=== PATIENT | female | born 1970 | race Hispanic/Latino ===

== ENCOUNTER 2020-01-02 10:31 | Emergency (ER) | payer SELFPAY ==
--- NOTE | 2020-01-02 11:57 | RAD REPORT ---
EXAM DESCRIPTION: RAD - Foot Right 3 View - 01/02/2020 11:14 am CLINICAL HISTORY: PAIN COMPARISON: No comparisons FINDINGS: No fracture, dislocation or periosteal reaction. No acute or destructive bone process. Soft tissue swelling is present over the dorsum of the foot. No air or foreign body present. IMPRESSION: Negative right foot examination for acute bone or joint finding. Soft tissue swelling of the dorsum of the foot.
--- NOTE | 2020-01-02 12:35 | ER ---
Nurse's Notes [facility] Name: Ora Scanlon Age: 49 yrs Sex: Female : 1970 Arrival Date: 01/02/2020 Time: 10:34 Bed 24 Private MD: Diagnosis: Contusion of right foot Presentation: 01/01 10:44 Chief complaint: Patient states: 3 days ago pt accidently kicked something and has dm5 bruising and swelling to right foot. pt has tried elevating foot and applying ice but there is still swelling. Coronavirus screen: The patient has NOT traveled to a country currently being monitored by the [facility] within the last 14 days. Proceed with normal triage procedures. The patient has NOT had contact with any known and/or suspected case of coronavirus. Proceed with normal triage procedures. Ebola Screen: Patient negative for fever greater than or equal to 101.5 degrees Fahrenheit, and additional compatible Ebola Virus Disease symptoms Patient denies exposure to infectious person. Patient denies travel to an Ebola-affected area in the 21 days before illness onset. No symptoms or risks identified at this time. Initial Sepsis Screen: Does the patient meet any 2 criteria? No. Patient's initial sepsis screen is negative. Does the patient have a suspected source of infection? No. Patient's initial sepsis screen is negative. Risk Assessment: Do you want to hurt yourself or someone else? Patient reports no desire to harm self or others. 10:44 Method Of Arrival: Ambulatory dm5 10:44 Acuity: JAMIE 4 dm5 - Immunization history:: Adult Immunizations up to date. - Social history:: Smoking status: Patient denies any tobacco usage or history of. Screenin:00 Abuse screen: Denies threats or abuse. Denies injuries from another. Nutritional ss screening: No deficits noted. Tuberculosis screening: Never had TB. Fall Risk None identified. Assessment: 12:00 General: Appears in no apparent distress. comfortable, Behavior is calm, cooperative. ss Pain: Complains of pain in top of R foot Pain currently is 5 out of 10 on a pain scale. Quality of pain is described as tender. Neuro: Level of Consciousness is awake, alert, obeys commands, Financial Systems Analyst are. Cardiovascular: Capillary refill < 3 seconds is brisk in bilateral fingers. Respiratory: Airway is patent Respiratory effort is even, unlabored, Respiratory pattern is regular, symmetrical. GI: Patient currently denies diarrhea, nausea, vomiting. : No signs and/or symptoms were reported regarding the genitourinary system. EENT: Oral mucosa is moist. Throat is clear. Derm: Skin is intact, is healthy with good turgor, Skin is dry, Skin is pink, warm \T\ dry. normal. Musculoskeletal: Circulation, motion, and sensation intact. Range of motion: intact in all extremities, Swelling present in right foot. Vital Signs: 10:44 BP 143 / 78; Pulse 78; Resp 18; Temp 98.5; Pulse Ox 96% on R/A; Weight 75.75 kg (R); dm5 Height 5 ft. 0 in. (152.40 cm); Pain 5/10; 10:44 Body Mass Index 32.61 (75.75 kg, 152.40 cm) 5 ED Course: 10:34 Patient arrived in ED. mr 10:46 Triage completed. 5 11:14 XRAY Foot RIGHT 3 View In Process Unspecified. EDMS 11:41 Ted Cat PA is PHCP. [facility] 11:41 Durga Cleveland MD is Attending Physician. [facility] 12:00 Patient has correct armband on for positive identification. Bed in low position. Call ss light in reach. 12:12 Arcelia Marsh, ROBERT is Primary Nurse. ss 12:35 Anil Newman DPM is Referral Physician. [facility] 13:27 No provider procedures requiring assistance completed. Patient did not have IV access ss during this emergency room visit. Crutch training done. Ortho shoe applied to right foot. Administered Medications: No medications were administered Outcome: 12:35 Discharge ordered by . [facility] 13:27 Discharged to home with crutches, with family. ss 13:27 Condition: good 13:27 Discharge instructions given to patient, Instructed on discharge instructions, follow up and referral plans. medication usage, Demonstrated understanding of instructions, follow-up care, medications. 13:28 Patient left the ED. ss Signatures: Dispatcher [employer] EDMS May Melgar, RN RN dm5 Ted Cat PA PA [facility] Juan Arminda mr Arcelia Marsh, ROBERT JONES ss
--- NOTE | 2020-01-02 12:36 | EDPHYS ---
Physician Documentation [facility] Name: Ora Scanlon Age: 49 yrs Sex: Female : 1970 Arrival Date: 01/02/2020 Time: 10:34 Bed 24 Private MD: ED Physician Durga Cleveland HPI: 01/01 12:29 This 49 yrs old Female presents to ER via Ambulatory with complaints of Foot jmm Injury. 12:29 The patient presents with an injury, pain, that is acute. Onset: The symptoms/episode jmm began/occurred acutely, just prior to arrival. Modifying factors: The symptoms are alleviated by elevating leg, the symptoms are aggravated by weight bearing. Associated signs and symptoms: Pertinent positives: swelling. This is a 49 year old female that presents to the ED with complaints of right foot swelling. Patient states this occurred after kicking a hard object 2 days ago. . - Immunization history:: Adult Immunizations up to date. - Social history:: Smoking status: Patient denies any tobacco usage or history of. ROS: 12:29 Constitutional: Negative for fever, chills, and weight loss, Cardiovascular: Negative jmm for chest pain, palpitations, and edema, Respiratory: Negative for shortness of breath, cough, wheezing, and pleuritic chest pain. 12:29 MS/extremity: Positive for injury or acute deformity. 12:29 All other systems are negative. Exam: 12:29 Constitutional: This is a well developed, well nourished patient who is awake, alert, jmm and in no acute distress. Head/Face: atraumatic. Eyes: EOMI, no conjunctival erythema appreciated ENT: Moist Mucus Membranes Neck: Trachea midline, Supple Chest/axilla: Normal chest wall appearance and motion. Cardiovascular: Regular rate and rhythm. No edema appreciated Respiratory: Normal respirations, no respiratory distress appreciated Abdomen/GI: Non distended, soft Back: Normal ROM 12:29 Musculoskeletal/extremity: swelling noted to the right foot, full dorsalis pulse, compartments are soft, NVI. 12:29 Skin: ecchymosis noted to the dorsum of the right foot. 12:29 Neuro: Orientation: is normal, Mentation: is normal, Memory: is normal. 12:29 Psych: Behavior/mood is pleasant, cooperative. Vital Signs: 10:44 BP 143 / 78; Pulse 78; Resp 18; Temp 98.5; Pulse Ox 96% on R/A; Weight 75.75 kg (R); dm5 Height 5 ft. 0 in. (152.40 cm); Pain 5/10; 10:44 Body Mass Index 32.61 (75.75 kg, 152.40 cm) dm5 MDM: 11:42 Patient medically screened. [facility] 12:29 Data reviewed: vital signs, nurses notes. Counseling: I had a detailed discussion with jason the patient and/or guardian regarding: the historical points, exam findings, and any diagnostic results supporting the discharge/admit diagnosis, radiology results, the need for outpatient follow up, to return to the emergency department if symptoms worsen or persist or if there are any questions or concerns that arise at home. ED course: Imaging studies negative. Patient advised to follow up with podiatry. . 01/01 10:46 Order name: XRAY Foot RIGHT 3 View; Complete Time: 12:04 [facility] 01/01 12:09 Order name: Orthopedic shoe; Complete Time: 13:14 [facility] 01/01 12:09 Order name: Crutches; Complete Time: 13:14 [facility] Administered Medications: No medications were administered Disposition: 01/02/20 12:35 Discharged to Home. Impression: Contusion of right foot. - Condition is Stable. - Discharge Instructions: Foot Pain. - Medication Reconciliation Form, Thank You Letter, Antibiotic Education, Prescription Opioid Use form. - Follow up: Anil Newman DPM; When: 2 - 3 days; Reason: Recheck today's complaints, Continuance of care, Re-evaluation by your physician. Addendum: 01/04/2020 09:05 Co-signature as Attending Physician, Durga Cleveland MD I agree with the assessment and c cowan plan of care. Signatures: Dispatcher [employer] EDMS Durga Cleveland MD MD cha Mickail, Joel, PA PA Arcelia Hernandez RN RN ss Corrections: (The following items were deleted from the chart) 01/01 13:28 12:35 01/02/2020 12:35 Discharged to Home. Impression: Contusion of right foot. ss Condition is Stable. Forms are Medication Reconciliation Form, Thank You Letter, Antibiotic Education, Prescription Opioid Use. Follow up: Anil Newman; When: 2 - 3 days; Reason: Recheck today's complaints, Continuance of care, Re-evaluation by your physician. jason
== END 2020-01-02 13:28 | disposition home or self-care (01) ==
LOC: ER 10:31
DX: S90.31XA Contusion of right foot, initial encounter (principal); W22.8XXA Striking against or struck by other objects, initial encounter; Y93.9 Activity, unspecified; Y92.9 Unspecified place or not applicable
CPT/HCPCS: 99283

== ENCOUNTER 2020-11-22 05:01 | Inpatient (IN) | payer SELFPAY ==
[2020-11-22] MEDS ORDERED: ACETAMINOPHEN 500 MG TAB ONE (05:37)
[2020-11-22] MEDS ORDERED: METHYLPREDNISOLONE 125 MG INJ ONE (05:37)
[2020-11-22] MEDS ORDERED: NA CHLORIDE 0.9% 500 ML ONE (05:37)
[2020-11-22 05:52] LABS: Absolute Lymphocytes (CBC) 1.3 K/uL (0.7-4.9); Basophils % 0.3 % (0-1.3); Hematocrit 39.9 % (36.0-45.0); Lymphocytes % 24.3 % (15.3-44.8); RBC Red Blood Cell Count 4.98 M/uL (3.86-4.86)
[2020-11-22] MEDS ORDERED: ONDANSETRON 4 MG/2 ML VIAL ONE (05:54)
[2020-11-22 06:08] LABS: ALT/SGPT 71 U/L (12-78); AST/SGOT 48 U/L (15-37); Albumin 3.3 g/dL (3.4-5.0); Alkaline Phosphatase 89 U/L (45-117); BUN Blood Urea Nitrogen 7 mg/dL (7-18); Bicarbonate 26 mmol/L (21-32); Bilirubin Direct < 0.1 mg/dL (0-0.2); Bilirubin Total 0.2 mg/dL (0.2-1.0); Ferritin 552.8 ng/mL (8-388); Glucose Level 199 mg/dL (74-106); Potassium 3.8 mmol/L (3.5-5.1); Sodium Level 135 mmol/L (136-145)
--- NOTE | 2020-11-22 06:28 | ER ---
Nurse's Notes [facility] Name: Ora Scanlon Age: 50 yrs Sex: Female : 1970 Arrival Date: 11/22/2020 Time: 05:02 Bed 14 Private MD: Diagnosis: Coronavirus infection, unspecified;Pneumonia, unspecified organism;Hypoxemia Presentation: 11/22 05:16 Chief complaint: Patient states: reports testing pos. for covid last Saturday, reports em no appetite, shortness of breath, fever and nausea, felt more generalized weakness today. Coronavirus screen: Client denies travel out of the [place] in the last 14 days. cough unrelated to allergies, fatigue, fever, shortness of breath, Client reports previous positive COVID test result. Date of collection: November 16, 2020. Ebola Screen: Patient negative for fever greater than or equal to 101.5 degrees Fahrenheit, and additional compatible Ebola Virus Disease symptoms Patient denies exposure to infectious person. Patient denies travel to an Ebola-affected area in the 21 days before illness onset. No symptoms or risks identified at this time. Initial Sepsis Screen: Does the patient meet any 2 criteria? Temp <36.0*C (96.8*F)) or > 38.3*C (100.9*F). HR > 90 bpm. Yes Does the patient have a suspected source of infection? Yes: Productive cough/pneumonia If YES to both, name of provider notified: Calos Gramajo MD. Risk Assessment: Do you want to hurt yourself or someone else? Patient reports no desire to harm self or others. Onset of symptoms was November 16, 2020. 05:16 Method Of Arrival: Wheelchair em 05:16 Acuity: JAMIE 2 em Triage Assessment: 05:15 General: Appears uncomfortable. Respiratory: Reports shortness of breath at rest Onset: ea The symptoms/episode began/occurred today, the patient has moderate shortness of breath. 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 - Social history:: Smoking status: Patient denies any tobacco usage or history of. - Family history:: not pertinent. - Hospitalizations: : No recent hospitalization is reported. Screenin:20 Abuse screen: Denies threats or abuse. Denies injuries from another. Nutritional rr5 screening: No deficits noted. Tuberculosis screening: No symptoms or risk factors identified. Fall Risk IV access (20 points). Total Brunner Fall Scale indicates No Risk (0-24 pts). Assessment: 05:15 General: Appears uncomfortable, Behavior is appropriate for age. Pain: Denies pain. ea Neuro: Level of Consciousness is awake, alert, obeys commands, Oriented to person, place, time. Cardiovascular: Patient's skin is warm and dry. Respiratory: Airway is patent Respiratory effort is labored, Respiratory pattern is tachypnea. 05:15 Cardiovascular: Rhythm is sinus tachycardia. Derm: Skin is dry, Skin is pale, Skin ea temperature is hot. 06:07 Reassessment: Patient and/or family updated on plan of care and expected duration. Pain ea level reassessed. Alert and oriented x 3. Pt remains on 4 L per nasal cannula, tolerating well. Pt remains tachypneic but respiration rate has improved after O2. 07:00 Reassessment: RECD REPORT FROM ADAM JONES. 50YO HF P/W SOB, COUGH AND FEVER, +COVID. bp ADMIT INITIATED. Respiratory: Breath sounds are coarse bilaterally. 09:00 Reassessment: No changes from previously documented assessment. Patient and/or family bp updated on plan of care and expected duration. Pain level reassessed. ADMIT IN PROCESS. 11:00 Reassessment: NO BED AVAILABLE. PT NOW ER HOLD, SEE [facility]. bp Vital Signs: 05:16 Pulse 107; Resp 26; Temp 101.2(O); Pulse Ox 92% on R/A; Height 4 ft. 11 in. (149.86 em cm); Pain 0/10; 05:20 BP 139 / 78; em 05:20 Pulse 118; Resp 32; Pulse Ox 88% on R/A; ea 05:30 Pulse Ox 90% on 4 lpm NC; rr5 05:34 Pulse Ox 98% on 4 lpm NC; rr5 05:43 BP 121 / 78; Pulse 102; Resp 30; Pulse Ox 99% ; Weight 79.38 kg; Height 4 ft. 11 in. rr5 (149.86 cm); 06:01 Pulse 91; Resp 27; Pulse Ox 99% ; ea 06:06 BP 117 / 63; Pulse 90; Resp 24; Pulse Ox 98% ; ea 07:00 Temp 100.7; rr5 07:00 BP 107 / 63; Pulse 84; Resp 29; Pulse Ox 96% ; bp 09:00 BP 117 / 71; Pulse 78; Resp 27; Pulse Ox 97% ; bp 11:00 BP 112 / 72; Pulse 76; Resp 21; Pulse Ox 97% ; bp 05:43 Body Mass Index 35.35 (79.38 kg, 149.86 cm) rr5 05:20 pt placed on 3 L per nasal cannula ea 05:30 started rr5 ED Course: 05:02 Patient arrived in ED. am2 05:11 Calos Gramajo MD is Attending Physician. rn 05:13 EKG done, by ED staff, reviewed by Calos Gramajo MD. rr5 05:15 Inserted saline lock: 20 gauge in left antecubital area, using aseptic technique. rr5 ,using aseptic technique. inserted by ganesh JONES Blood collected. 05:15 First set of blood cultures drawn by ED staff. rr5 05:19 Triage completed. em 05:19 Arm band placed on. em 05:30 Patient has correct armband on for positive identification. Placed in gown. Bed in low rr5 position. Call light in reach. Side rails up X2. cardiac monitor on. Pulse ox on. NIBP on. 05:33 Adam Amezquita RN is Primary Nurse. rr5 05:42 CXR XRAY In Process Unspecified. EDMS 06:28 Vincent Hyde DO is Hospitalizing Provider. rn 07:13 Primary Nurse role handed off by Adam Amezquita, ROBERT rr5 07:23 Beto Khoury, RN is Primary Nurse. bp 11:09 No provider procedures requiring assistance completed. Patient admitted, IV remains in bp place. 02 07:20 Primary Nurse role handed off by Beto Khoury, RN bd Administered Medications: 11/22 05:30 Drug: Tylenol 1000 mg Route: PO; rr5 07:00 Follow up: Response: No adverse reaction; Temperature is decreased rr5 05:31 Drug: SOLU-Medrol 125 mg Route: IVP; Site: left antecubital; rr5 06:30 Follow up: Response: No adverse reaction rr5 05:32 Drug: NS 0.9% 500 ml Route: IV; Rate: bolus; Site: left antecubital; rr5 06:36 Follow up: Response: No adverse reaction; IV Status: Completed infusion; IV Intake: rr5 500ml 05:42 Drug: Zofran (Ondansetron) 4 mg Route: IVP; Site: left antecubital; rr5 07:10 Follow up: Response: No adverse reaction rr5 Intake: 06:36 IV: 500ml; Total: 500ml. rr5 Outcome: 06:28 Decision to Hospitalize by Provider. rn 11:09 Admitted to ER Hold. Please see [facility] for further documentation. bp 11:09 Condition: stable 11:09 Instructed on the need for admit. 02 15:53 Patient left the ED. sv Signatures: Dispatcher [employer] EDMS Magda Abebe Stephanie RN RN Bill Cooney, RN RN Calos Mckeon MD MD rn Moreno, Amanda am2 Antunez, Elena, RN RN ea Peltier, Brian, RN RN Adam Batista, RN RN rr5 Corrections: (The following items were deleted from the chart) 11/22 08:15 07:00 Pulse 84bpm; Resp 29bpm; Pulse Ox 96%; bp bp
--- NOTE | 2020-11-22 06:29 | EDPHYS ---
Physician Documentation [facility] Name: Ora Scanlon Age: 50 yrs Sex: Female : 1970 Arrival Date: 11/22/2020 Time: 05:02 Bed 14 Private MD: ED Physician Calos Gramajo HPI: 11/22 05:17 This 50 yrs old Female presents to ER via Unassigned with complaints of rn Shortness Of Breath, Breathing Difficulty, Cough, Decreased Appetite, covid+. 05:17 The patient has shortness of breath with light activity. Onset: The symptoms/episode rn began/occurred 6 day(s) ago. Duration: The symptoms are continuous. The patient's shortness of breath is aggravated by exertion, light activity, walking. Severity of symptoms: At their worst the symptoms were moderate in the emergency department the symptoms are unchanged. The patient has not experienced similar symptoms in the past. The patient has not recently seen a physician. No chest pain, no hemoptysis. Reports came in for increased sob and generalized weakness. . 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 - Social history:: Smoking status: Patient denies any tobacco usage or history of. - Family history:: not pertinent. - Hospitalizations: : No recent hospitalization is reported. ROS: 05:19 Constitutional: + fever and chills Eyes: Negative for injury, pain, redness, and recovery rn, ENT: Negative for injury, pain, and discharge, Cardiovascular: Negative for chest pain, and edema Respiratory: + sob and cough Abdomen/GI: Negative for abdominal pain, nausea, vomiting, diarrhea, and constipation, Back: Negative for injury and pain, : Negative for injury, bleeding, discharge, and swelling, MS/Extremity: Negative for injury and deformity, Skin: Negative for injury, rash, and discoloration, Neuro: Negative for headache, numbness, tingling, and seizure. Exam: 05:19 Constitutional: Overweight patient, mild to moderate tachypnea Head/Face: rn Normocephalic, atraumatic. ENT: no stridor Cardiovascular: Tachycardic, regular Respiratory: + moderat tachypnea, no retractions Abdomen/GI: soft, non-tender Skin: Warm, dry MS/ Extremity: Pulses equal, no cyanosis. Neuro: Awake and alert, GCS 15 05:48 ECG was reviewed by the Attending Physician. rn Vital Signs: 05:16 Pulse 107; Resp 26; Temp 101.2(O); Pulse Ox 92% on R/A; Height 4 ft. 11 in. (149.86 em cm); Pain 0/10; 05:20 BP 139 / 78; em 05:20 Pulse 118; Resp 32; Pulse Ox 88% on R/A; ea 05:30 Pulse Ox 90% on 4 lpm NC; rr5 05:34 Pulse Ox 98% on 4 lpm NC; rr5 05:43 BP 121 / 78; Pulse 102; Resp 30; Pulse Ox 99% ; Weight 79.38 kg; Height 4 ft. 11 in. rr5 (149.86 cm); 06:01 Pulse 91; Resp 27; Pulse Ox 99% ; ea 06:06 BP 117 / 63; Pulse 90; Resp 24; Pulse Ox 98% ; ea 07:00 Temp 100.7; rr5 07:00 BP 107 / 63; Pulse 84; Resp 29; Pulse Ox 96% ; bp 09:00 BP 117 / 71; Pulse 78; Resp 27; Pulse Ox 97% ; bp 11:00 BP 112 / 72; Pulse 76; Resp 21; Pulse Ox 97% ; bp 05:43 Body Mass Index 35.35 (79.38 kg, 149.86 cm) rr5 05:20 pt placed on 3 L per nasal cannula ea 05:30 started rr5 MDM: 05:11 Patient medically screened. rn 06:27 Differential diagnosis: pneumonia, Pneumothorax pulmonary edema. Data reviewed: vital rn signs, nurses notes, lab test result(s), EKG, radiologic studies, plain films, and as a result, I will admit patient. Counseling: I had a detailed discussion with the patient and/or guardian regarding: the historical points, exam findings, and any diagnostic results supporting the discharge/admit diagnosis, lab results, radiology results, the need for further work-up and treatment in the hospital. Response to treatment: the patient's symptoms have mildly improved after treatment, and as a result, I will admit patient. Admission orders: after a detailed discussion of the patient's condition and case, the admit orders are written by me. ED course: Will admit to [facility] fro COVID pneumonia and oxygen 88% with increased work of breathing. . 11/22 05:17 Order name: Blood Culture Adult (2) rn 11/22 05:17 Order name: BMP rn 11/22 05:17 Order name: C-Reactive Protein rn 11/22 05:17 Order name: CBC with Diff rn 11/22 05:17 Order name: D-Dimer rn 11/22 05:17 Order name: Ferritin rn 11/22 05:17 Order name: Lactate rn 11/22 05:17 Order name: LFT's rn 11/22 05:17 Order name: Procalcitonin rn 11/22 05:18 Order name: Blood Culture EDMS 11/22 05:18 Order name: Basic Metabolic Panel; Complete Time: 06:28 EDMS 11/22 05:18 Order name: C-Reactive Protein; Complete Time: 06:28 EDMS 11/22 05:18 Order name: CBC with Automated Diff; Complete Time: 06:28 EDMS 11/22 05:18 Order name: D-Dimer; Complete Time: 06:28 EDMS 11/22 05:17 Order name: CXR XRAY rn 11/22 05:18 Order name: Ferritin; Complete Time: 06:28 EDMS 11/22 05:18 Order name: Lactate; Complete Time: 06:28 EDMS 11/22 05:18 Order name: Liver (Hepatic) Function; Complete Time: 06:28 EDMS 11/22 12:44 Order name: Glucose, Ancillary Testing EDMS 11/22 16:48 Order name: Glucose, Ancillary Testing EDMS 11/22 21:46 Order name: Urine Dipstick--Ancillary (enter results) ds4 11/22 21:53 Order name: Glucose, Ancillary Testing EDMS 11/22 22:03 Order name: Urine Dipstick-Ancillary EDMS 11/23 05:33 Order name: C-Reactive Protein EDMS 11/23 05:33 Order name: Ferritin EDMS 11/23 06:14 Order name: Hemoglobin A1c EDMS 11/23 08:22 Order name: Glucose, Ancillary Testing EDMS 11/23 11:49 Order name: Glucose, Ancillary Testing [facility] 11/22 05:17 Order name: EKG; Complete Time: 05:19 rn 11/22 05:17 Order name: Cardiac monitoring; Complete Time: 05:56 rn 11/22 05:17 Order name: Droplet/Contact Precautions; Complete Time: 05:56 rn 11/22 05:17 Order name: EKG - Nurse/Tech; Complete Time: 05:56 rn 11/22 05:17 Order name: IV Start; Complete Time: 05:56 rn 11/22 05:17 Order name: Labs collected and sent; Complete Time: 05:56 rn 11/22 05:17 Order name: O2 Per Protocol; Complete Time: :56 rn 11/22 05:17 Order name: O2 Sat Monitoring; Complete Time: :56 rn EC:48 Rate is 103 beats/min. Rhythm is regular. QRS Cadwell is Normal. DC interval is normal. rn QRS interval is normal. QT interval is normal. No Q waves. T waves are Normal. No ST changes noted. Clinical impression: Sinus tachycardia. Interpreted by me. Reviewed by me. Administered Medications: 05:30 Drug: Tylenol 1000 mg Route: PO; rr5 07:00 Follow up: Response: No adverse reaction; Temperature is decreased rr5 05:31 Drug: SOLU-Medrol 125 mg Route: IVP; Site: left antecubital; rr5 06:30 Follow up: Response: No adverse reaction rr5 05:32 Drug: NS 0.9% 500 ml Route: IV; Rate: bolus; Site: left antecubital; rr5 06:36 Follow up: Response: No adverse reaction; IV Status: Completed infusion; IV Intake: rr5 500ml 05:42 Drug: Zofran (Ondansetron) 4 mg Route: IVP; Site: left antecubital; rr5 07:10 Follow up: Response: No adverse reaction rr5 Disposition: 11/22/20 06:28 Hospitalization ordered by [facility] for Observation. Preliminary diagnosis are Coronavirus infection, unspecified, Pneumonia, unspecified organism, Hypoxemia. - Bed requested for [facility] ER HOLD. - Status is Observation. sv - Condition is Stable. - Problem is new. - Symptoms have improved. Signatures: Dispatcher [employer] Melisa Orozco RN Bill Burton, RN RN Calos Mckeon MD MD rn Peltier, Brian, RN RN Girish Batista, RN RN rr5 Lulu West, RN RN ll2 Corrections: (The following items were deleted from the chart) 06:50 06:28 Hospitalization Ordered by Vincent Hyde DO for Inpatient Admission. Preliminary rn diagnosis is Coronavirus infection, unspecified; Pneumonia, unspecified organism; Hypoxemia. Bed requested for Telemetry/MedSurg (Inpatient). Status is Inpatient Admission. Condition is Stable. Problem is new. Symptoms have improved. rn 11: 06:50 11/22/2020 06:28 Hospitalization Ordered by [facility] DO for Observation. bp Preliminary diagnosis is Coronavirus infection, unspecified; Pneumonia, unspecified organism; Hypoxemia. Bed requested for Telemetry/MedSurg (observation). Status is Observation. Condition is Stable. Problem is new. Symptoms have improved. rn 11/23 15:53 11/22 11:09 11/22/2020 06:28 Hospitalization Ordered by Vincent Hyde DO for sv Observation. Preliminary diagnosis is Coronavirus infection, unspecified; Pneumonia, unspecified organism; Hypoxemia. Bed requested for [facility] ER HOLD. Status is Observation. Condition is Stable. Problem is new. Symptoms have improved. bp
[2020-11-22] MEDS: METHYLPREDNISOLONE 125 MG INJ IV SCH ×2 (11:07→17:00)
[2020-11-22] MEDS ORDERED: IBUPROFEN 400 MG TAB PO PRN (11:07)
[2020-11-22] MEDS ORDERED: ONDANSETRON 4 MG/2 ML VIAL IV PRN (11:07)
[2020-11-22] MEDS: VITAMIN D 1000 UNIT TAB PO SCH (11:07)
[2020-11-22] MEDS: ASPIRIN EC 81 MG TAB PO SCH (11:07)
[2020-11-22] MEDS: ENOXAPARIN 40 MG/0.4 ML SQ SCH (11:07)
[2020-11-22] MEDS ORDERED: ALBUTEROL INHALER 60 PUFF/8 GM IH PRN (11:07)
[2020-11-22] MEDS ORDERED: ACETAMINOPHEN 500 MG TAB PO PRN (11:07)
[2020-11-22] MEDS ORDERED: BENZONATATE 100 MG CAP PO PRN (11:07)
[2020-11-22] MEDS: ZINC SULFATE 220 MG CAP PO SCH (11:07)
[2020-11-22] MEDS: THIAMINE HCL 100 MG TABLET PO SCH ×2 (11:07→21:00)
[2020-11-22] MEDS: ASCORBIC ACID 500 MG TABLET PO SCH ×3 (11:07→21:00)
[2020-11-22] MEDS ORDERED: IVERMECTIN 3 MG TABLET PO ONE (11:30)
[2020-11-22] MEDS: INSULIN -REGULAR HUMAN 50 UNIT/0.5 ML ML SQ SCH ×3 (11:30→21:00)
--- NOTE | 2020-11-22 12:53 | EKG ---
Test Date: 2020-11-22 Test Time: 05:18:01 Fashion Model: KOKO MEASUREMENT RESULTS: Intervals: Rate: 103 AZ: 144 QRSD: 78 QT: 324 QTc: 424 Duncan: P: 19 AZ: 144 QRS: 12 T: 37 INTERPRETIVE STATEMENTS: Sinus tachycardia Otherwise normal ECG No previous ECG available for comparison Electronically Signed On 11-22-20 12:53:02 [employer]ED [employer] by Junior Grey
[2020-11-22] MEDS ORDERED: INSULIN -REGULAR HUMAN 50 UNIT/0.5 ML ML ONE ×3 (13:01→22:14)
--- NOTE | 2020-11-22 13:05 | P.HP ---
Certification for Inpatient Patient admitted to: Observation With expected LOS: <2 Midnights Patient will require the following post-hospital care: None Practitioner: I am a practitioner with admitting privileges, knowledge of patient current condition, hospital course, and medical plan of care. Services: Services provided to patient in accordance with Admission requirements found in Title 42 Section 412.3 of the Code of Federal Regulations Patient History Date of Service: 11/22/20 Primary Care Provider: none Reason for admission: SOB History of Present Illness: 50-year-old female presented to the emergency room with increasing shortness of breath. Patient was diagnosed with COVID 19 about a week a half ago. Patient continue to have increasing shortness of breath and cough. Some fatigue, arthralgias noted. Patient came to the ER for worsening symptoms. In the ER patient was evaluated. Patient found to have some desaturations as low as 88% on room air especially with exertion. Patient was placed on oxygen. Ferritin level 552. CRP 102. Lactic acid normal. Blood sugar 199. Pro calcitonin normal. Chest x-ray showed viral pneumonia bilateral. Patient admitted for further evaluation and treatment. Allergies No Known Allergies Allergy (Verified 11/22/20 11:07) Home medications list reviewed: Yes - Past Medical/Surgical History Diabetic: No Past Medical History: Patient denies medical history Past Surgical History: Reviewed- Non-Contributory Psychosocial/ Personal History: Patient lives at home - Family History Family History: Reviewed- Non-Contributory - Social History Smoking Status: Never smoker Alcohol use: No CD- Drugs: No Caffeine use: No Place of Residence: Home Review of Systems General: Fever, Weakness, As per HPI Eyes: Unremarkable ENT: Unremarkable Respiratory: Cough, Shortness of Breath, SOB with Excertion, As per HPI Cardiovascular: Unremarkable Gastrointestinal: Unremarkable Genitourinary: Unremarkable Musculoskeletal: Unremarkable Integumentary: Unremarkable Neurological: Unremarkable Lymphatics: Unremarkable Physical Examination - Physical Exam General: Alert, In no apparent distress, Oriented x3, Cooperative HEENT: Atraumatic Neck: Supple Respiratory: Other (Some crackles to the bases. Patient requiring 2 L per nasal cannula without significant distress ) Cardiovascular: Normal pulses, Regular rate/rhythm Gastrointestinal: No guarding Neurological: Normal speech, Normal strength at 5/5 x4 extr, Normal tone, Normal affect - Studies Laboratory Data (last 24 hrs) 11/22/20 05:20: WBC 5.30, Hgb 13.1, Hct 39.9, Plt Count 209 11/22/20 05:20: Sodium 135 L, Potassium 3.8, BUN 7, Creatinine 0.72, Glucose 199 H, Total Bilirubin 0.2, AST 48 H, ALT 71, Alkaline Phosphatase 89 Assessment and Plan - Plan Impression: Dyspnea secondary to Bilateral COVID 19 pneumonia with hypoxia Hyperglycemia suspect diabetes versus pre diabetes Plan: Patient will be admitted for further evaluation and treatment. Patient will be started on IV Solu-Medrol, ivermectin, and supplementation. Currently on 2 L per nasal cannula. Will check A1c as blood sugars are slightly elevated indicating possible pre diabetes or diabetes. Encourage incentive spirometer. Encourage proning. Respiratory consulted to help wean off oxygen. Continue to monitor closely. Anticipate possible improvement and discharge as early as tomorrow. Patient may require oxygen at discharge. Will consult pulmonology for further recommendation. Discharge Plan: Home Plan to discharge in: 24 Hours - Advance Directives Does patient have a Living Will: No Does patient have a Durable POA for Healthcare: No - Code Status/Comfort Care Code Status Assessed: Yes (Patient is full code) Time Spent Managing Pts Care (In Minutes): 55
[2020-11-22] MEDS ORDERED: THIAMINE HCL 100 MG TABLET ONE ×2 (13:14→22:22)
[2020-11-22] MEDS ORDERED: VITAMIN D 1000 UNIT TAB ONE (13:15)
[2020-11-22] MEDS ORDERED: ASCORBIC ACID 500 MG TABLET ONE ×3 (13:15→20:44)
[2020-11-22] MEDS ORDERED: ASPIRIN EC 81 MG TAB PO ONE (13:15)
[2020-11-22] MEDS ORDERED: ZINC SULFATE 220 MG CAP ONE (13:15)
[2020-11-22] MEDS ORDERED: METHYLPREDNISOLONE 40 MG INJ ONE ×2 (13:15→17:07)
[2020-11-22] MEDS ORDERED: ENOXAPARIN 40 MG/0.4 ML SQ ONE (13:16)
[2020-11-22 14:52] VITALS: BMI 35.3
--- NOTE | 2020-11-22 15:10 | RAD REPORT ---
EXAM DESCRIPTION: Chest Single View CLINICAL HISTORY: COVID +;Dyspnea COMPARISON: None. FINDINGS: Single frontal radiograph view of the chest. Cardiomediastinal silhouette: Normal size and contour. Lungs: Diffuse patchy bilateral opacities. Low lung volumes. No pneumothorax. Bones: No acute osseous abnormality. Leads overlie the chest. Upper abdomen: No abnormality identified. IMPRESSION: 1. Diffuse patchy bilateral opacities concerning for bilateral pneumonic process. Low ernie ng volumes. Electronically signed by: Johnson Jefferson 11/22/2020 5:49 AM BIBLICAL LANGUAGES PROFESSOR Due to temporary technical issues with the PACS/Fluency reporting system, reports are being signed by the in house radiologists without review as a courtesy to insure prompt reporting. The interpreting radiologist is fully responsible for the content of the report.
[2020-11-22] MEDS ORDERED: MELATONIN 5 MG TABLET PO SCH (21:00)
[2020-11-22] MEDS ORDERED: NA CHLORIDE 0.9% 1,000 ML ONE (21:29)
[2020-11-22] MEDS ORDERED: FAMOTIDINE 20 MG/2 ML VIAL IV ONE (21:29)
[2020-11-22 22:03] LABS: Urine Blood NEGATIVE (NEG); Urine Glucose 2+ (NEG); Urine Protein TRACE (NEG)
[2020-11-23] MEDS: METHYLPREDNISOLONE 125 MG INJ IV SCH ×2 (01:00→09:05)
[2020-11-23] MEDS ORDERED: METHYLPREDNISOLONE 40 MG INJ ONE (01:57)
[2020-11-23 05:32] LABS: C-Reactive Protein 77.2 mg/L (<3.00); Ferritin 839.7 ng/mL (8-388)
[2020-11-23] MEDS ORDERED: METFORMIN HCL 500 MG TAB PO SCH (08:00)
--- NOTE | 2020-11-23 08:20 | P.CNS ---
Date of Consult: 11/23/20 Primary Care Provider: none Chief Complaint: SOB History of Present Illness: Patient is 50 years of age presented to the emergency room with worsening dyspnea she was diagnosed with poon virus about a week and a half ago the complaining of coughing 50 took as currently doing better on minimal oxygen steroids have really helped her Allergies No Known Allergies Allergy (Verified 11/22/20 11:07) Home Medications: NK [No Home Meds] 11/22/20 - Past Medical/Surgical History Diabetic: No Psychosocial/ Personal History: Patient lives at home - Social History Alcohol use: No CD- Drugs: No Caffeine use: No Place of Residence: Home Review of Systems General: Weakness Respiratory: Shortness of Breath Physical Examination Temp Pulse Resp BP Pulse Ox 98.2 F 65 19 105/65 98 11/23/20 03:00 11/23/20 03:00 11/23/20 03:00 11/23/20 03:00 11/23/20 03:00 - Problems (1) Pneumonia due to Coronavirus disease 2018 Current Visit: Yes Status: Acute Plan: Patient is 50 years of age admitted with hypoxemia due to poon virus she is currently improving labs reviewed ferritin CRP levels elevated she is some interstitial changes patient is also diabetic the need to be treated with metformin low-dose steroids and ivermectin check if she qualifies for home O2 possible discharge blood pressures stable
--- NOTE | 2020-11-23 08:27 | P.DS ---
Admission Date: 11/23/20 Discharge Date: 11/23/20 Primary Care Provider: none Disposition: ROUTINE DISCHARGE Discharge Condition: GOOD Reason for Admission: SOB Consultations: Pulmonary-Dr. Ramirez Procedures: CXR: FINDINGS: Single frontal radiograph view of the chest. Cardiomediastinal silhouette: Normal size and contour. Lungs: Diffuse patchy bilateral opacities. Low lung volumes. No pneumothorax. Bones: No acute osseous abnormality. Leads overlie the chest. Upper abdomen: No abnormality identified. IMPRESSION: 1. Diffuse patchy bilateral opacities concerning for bilateral pneumonic process. Low lung volumes. Medical problem list: Dyspnea secondary to Bilateral COVID 19 pneumonia with hypoxia New diagnosis diabetes mellitus type 2 with hyperglycemia Obesity, BMI 35.3 Brief History of Present Illness: 50-year-old female presented to the emergency room with increasing shortness of breath. Patient was diagnosed with COVID 19 about a week a half ago. Patient continue to have increasing shortness of breath and cough. Some fatigue, arthralgias noted. Patient came to the ER for worsening symptoms. In the ER patient was evaluated. Patient found to have some desaturations as low as 88% on room air especially with exertion. Patient was placed on oxygen. Ferritin level 552. CRP 102. Lactic acid normal. Blood sugar 199. Pro calcitonin normal. Chest x-ray showed viral pneumonia bilateral. Patient admitted for further evaluation and treatment. Hospital Course: Patient presented with dyspnea secondary to bilateral COVID 19 pneumonia with hypoxia. Patient had been diagnosed prior to admission. Patient required hospitalization including IV steroids, ivermectin, and supplementation. The patient has improved. At discharge patient is requiring home oxygen. Patient able to ambulate appropriately without significant desaturation or shortness of breath. At discharge the patient will continue with prednisone 20 mg 1 pill twice daily for 7 days then 1 pill once daily for 7 days. Patient will be provided Tessalon 100 mg 3 times a day as needed for cough and Pro air 2 puffs 3 times a day as needed for shortness of breath. The patient will also continue with zinc 220 mg daily, thiamine 100 mg twice daily, vitamin-D 2000 units daily, melatonin 5 mg every bedtime, and vitamin-C 500 mg 3 times a day. Patient will also continue with aspirin 81 mg daily. Recommend to continue proning when l raymond down. Recommend to continue with incentive spirometer. Patient to slowly increase ambulation. Patient is to monitor her oxygen saturation levels to maintain above 93%. At discharge patient will continue with home oxygen at 2-3 liters/minute. This will be arranged prior to discharge. Patient will continue with CDC guidelines on COVID 19 isolation. Patient will need isolate for at least 10 days. Patient will continue with social distancing, fase mask use, and hand washing. Patient will need a follow up with pulmonology in 1 week to follow up this hospitalization and continue her care. Pulmonology will continue to adjust medication and wean off oxygen. Patient with new diagnosis of diabetes mellitus type 2 with hyperglycemia. Hemoglobin A1c 8.6. Patient be given information on diabetes. At discharge recommend to monitor blood sugars at least twice daily. Recommend to maintain blood sugars less than 140 fasting and less than 200 after meals. At discharge the patient will start metformin 1000 mg 1 pill twice daily. Recommend to establish care with a local PCP to continue treatment and for further monitoring. Additional medication may be required for additional control if blood sugars remain above 200. This can be done with the help of her PCP. Lifestyle modification education provided. Vital Signs/Physical Exam: Temp Pulse Resp BP Pulse Ox 98.2 F 65 19 105/65 98 11/23/20 03:00 11/23/20 03:00 11/23/20 03:00 11/23/20 03:00 11/23/20 03:00 General: Alert, In no apparent distress, Oriented x3, Cooperative HEENT: Atraumatic Neck: Supple Respiratory: Clear to auscultation bilaterally, Normal air movement Cardiovascular: Normal pulses, Regular rate/rhythm Gastrointestinal: Normal bowel sounds, Soft and benign, Non-distended, No tenderness, No masses, No rebound, No guarding Neurological: Normal speech, Normal strength at 5/5 x4 extr, Normal tone, Normal affect Laboratory Data at Discharge: WBC 5.30 K/uL (4.3-10.9) 11/22/20 05:20 Hgb 13.1 g/dL (12.0-15.0) 11/22/20 05:20 Hct 39.9 % (36.0-45.0) 11/22/20 05:20 Plt Count 209 K/uL (152-406) 11/22/20 05:20 Sodium 135 mmol/L (136-145) L 11/22/20 05:20 Potassium 3.8 mmol/L (3.5-5.1) 11/22/20 05:20 BUN 7 mg/dL (7-18) 11/22/20 05:20 Creatinine 0.72 mg/dL (0.55-1.3) 11/22/20 05:20 Glucose 199 mg/dL (74-106) H 11/22/20 05:20 Total Bilirubin 0.2 mg/dL (0.2-1.0) 11/22/20 05:20 AST 48 U/L (15-37) H 11/22/20 05:20 ALT 71 U/L (12-78) 11/22/20 05:20 Alkaline Phosphatase 89 U/L (45-117) 11/22/20 05:20 Home Medications: Albuterol Inhaler [Ventolin Inhaler*] 2 puff IH Q6H PRN #1 hfa.aer.ad 11/23/20 Ascorbic Acid [Vitamin C*] 500 mg PO TID #90 tablet 11/23/20 Aspirin [Aspirin EC 81 MG] 81 mg PO DAILY #90 tablet. 11/23/20 Benzonatate [Tessalon Perle*] 100 mg PO TID PRN #15 cap 11/23/20 Cholecalciferol (Vitamin D3) [Vitamin D 1000 Iu Tab*] 2,000 unit PO DAILY #60 tab 11/23/20 Melatonin 5 mg PO BEDTIME #30 tablet 11/23/20 Metformin HCl [Glucophage] 1,000 mg PO BID #60 tablet 11/23/20 Thiamine HCl [Vitamin B-1*] 100 mg PO BID #60 tablet 11/23/20 Zinc Sulfate [Zinc Sulfate*] 220 mg PO DAILY #30 cap 11/23/20 predniSONE [Prednisone*] 20 mg PO SEECOM #21 tab 11/23/20 New Medications: Aspirin [Aspirin EC 81 MG] 81 mg PO DAILY #90 tablet. Metformin HCl [Glucophage] 1,000 mg PO BID #60 tablet Melatonin 5 mg PO BEDTIME #30 tablet predniSONE [Prednisone*] 20 mg PO SEECOM #21 tab Benzonatate [Tessalon Perle*] 100 mg PO TID PRN #15 cap PRN Reason: Cough Albuterol Inhaler [Ventolin Inhaler*] 2 puff IH Q6H PRN #1 hfa.aer.ad PRN Reason: Shortness Of Breath Thiamine HCl [Vitamin B-1*] 100 mg PO BID #60 tablet Ascorbic Acid [Vitamin C*] 500 mg PO TID #90 tablet Cholecalciferol (Vitamin D3) [Vitamin D 1000 Iu Tab*] 2,000 unit PO DAILY #60 tab Zinc Sulfate [Zinc Sulfate*] 220 mg PO DAILY #30 cap Physician Discharge Instructions: Follow up with PCP to establish care and follow up this hospitalization. Patient presented with dyspnea secondary to bilateral COVID 19 pneumonia with hypoxia. Patient had been diagnosed prior to admission. Patient required hospitalization including IV steroids, ivermectin, and supplementation. The patient has improved. At discharge patient is requiring home oxygen. Patient able to ambulate appropriately without significant desaturation or shortness of breath. At discharge the patient will continue with prednisone 20 mg 1 pill twice daily for 7 days then 1 pill once daily for 7 days. Patient will be provided Tessalon 100 mg 3 times a day as needed for cough and Pro air 2 puffs 3 times a day as needed for shortness of breath. The patient will also continue with zinc 220 mg daily, thiamine 100 mg twice daily, vitamin-D 2000 units daily, melatonin 5 mg every bedtime, and vitamin-C 500 mg 3 times a day. Patient will also continue with aspirin 81 mg daily. Recommend to continue proning when lying down. Recommend to continue with incentive spirometer. Patient to slowly increase ambulation. Patient is to monitor her oxygen saturation levels to maintain above 93%. At discharge patient will continue with home oxygen at 2-3 liters/minute. This will be arranged prior to discharge. Patient will continue with CDC guidelines on COVID 19 isolation. Patient will need isolate for at least 10 days. Patient will continue with social distancing, fase mask use, and hand washing. Patient will need a follow up with pulmonology in 1 week to follow up this hospitalization and continue her care. Pulmonology will continue to adjust medication and wean off oxygen. Patient with new diagnosis of diabetes mellitus type 2 with hyperglycemia. Hemoglobin A1c 8.6. Patient be given information on diabetes. At discharge recommend to monitor blood sugars at least twice daily. Recommend to maintain blood sugars less than 140 fasting and less than 200 after meals. At discharge the patient will start metformin 1000 mg 1 pill twice daily. Recommend to establish care with a local PCP to continue treatment and for further monitoring. Additional medication may be required for additional control if blood sugars remain above 200. This can be done with the help of her PCP. Life style modification education provided. Diet: ADA Activity: Ad anderson Followup: NONE,NONE [Primary Care Provider] - Time spent managing pt's care (in minutes): 55
[2020-11-23] MEDS: VITAMIN D 1000 UNIT TAB PO SCH (09:04)
[2020-11-23] MEDS: ASPIRIN EC 81 MG TAB PO SCH (09:04)
[2020-11-23] MEDS: ZINC SULFATE 220 MG CAP PO SCH (09:04)
[2020-11-23] MEDS: THIAMINE HCL 100 MG TABLET PO SCH (09:04)
[2020-11-23] MEDS: ASCORBIC ACID 500 MG TABLET PO SCH ×2 (09:04→13:52)
[2020-11-23] MEDS: ENOXAPARIN 40 MG/0.4 ML SQ SCH (09:05)
[2020-11-23] MEDS: INSULIN -REGULAR HUMAN 50 UNIT/0.5 ML ML SQ SCH ×2 (09:05→12:20)
[2020-11-23] MEDS ORDERED: THIAMINE HCL 100 MG TABLET ONE ×2 (09:16→20:48)
[2020-11-23] MEDS ORDERED: ASPIRIN EC 81 MG TAB PO ONE (09:16)
[2020-11-23] MEDS ORDERED: METFORMIN HCL 500 MG TAB ONE ×2 (09:16→09:30)
[2020-11-23] MEDS ORDERED: METHYLPREDNISOLONE 125 MG INJ ONE (09:16)
[2020-11-23] MEDS ORDERED: VITAMIN D 1000 UNIT TAB ONE ×2 (09:17→09:30)
[2020-11-23] MEDS ORDERED: ASCORBIC ACID 500 MG TABLET ONE ×3 (09:17→20:49)
[2020-11-23] MEDS ORDERED: ZINC SULFATE 220 MG CAP ONE (09:17)
[2020-11-23] MEDS ORDERED: INSULIN -REGULAR HUMAN 50 UNIT/0.5 ML ML ONE ×2 (09:17→12:31)
[2020-11-23] MEDS ORDERED: ENOXAPARIN 40 MG/0.4 ML SQ ONE (09:18)
[2020-11-23 11:14] VITALS: O2SAT 95
[2020-11-23 12:39] VITALS: BP 106/72; TEMP 97.6
[2020-11-23] MEDS ORDERED: BENZONATATE 100 MG CAP PO ONE (15:18)
[2020-11-23] MEDS ORDERED: APIXABAN 5 MG TABLET ONE (20:48)
== END 2020-11-23 15:53 | disposition home or self-care (01) | DRG 177 ==
LOC: ER 05:01 → ERHOLD 07:37 → OBSVTOIN 11-23 08:11 → ERHOLD 11-23 09:26
PROVIDERS: ADMIT Family Medicine; ATTEND Family Medicine
DX: U07.1 COVID-19 (principal); J12.82 Pneumonia due to coronavirus disease 2019; M25.50 Pain in unspecified joint; E11.65 Type 2 diabetes mellitus with hyperglycemia; E66.9 Obesity, unspecified; Z68.35 Body mass index [BMI] 35.0-35.9, adult; Z79.82 Long term (current) use of aspirin; Z79.84 Long term (current) use of oral hypoglycemic drugs; Z79.52 Long term (current) use of systemic steroids; Z79.899 Other long term (current) drug therapy
CPT/HCPCS: 36415; 71045; 80048; 80076; 81003; 82728; 82947; 83036; 83605; 84145; 85025; 85379; 86140; 87040; 93005; 94010; 96361; 96374; 96375; 99285; J1650; J2405; J2920; J2930; J7030; J7040